=== PATIENT | female | born 1960 | race Two or more races ===

== ENCOUNTER 2016-10-08 05:22 | Emergency (ER) | payer BC ==
[~2016-10-08] VITALS: Ht 157.5 cm; Wt 77.2 kg
[2016-10-08 05:39] LABS: HEMATOCRIT 39.5 % (36.0-46.0); MCH 29.2 PG (29.0-34.0); MCHC 33.4 G/DL (30.0-36.0); MCV 87.4 FL (83-99); MEAN PLAT.VOLUME 9.2 uM^3 (9.5-12.4); PLATELET COUNT 267 K/uL (156-360); RBC DIS.WIDTH-CV 12.4 % (11.8-14.6); RBC DIS.WIDTH-SD 38.8 % (39-53); RED BLOOD COUNT 4.52 M/uL (3.80-5.20); WHITE BLOOD COUNT 6.3 K/uL (4.1-10.2)
[2016-10-08 05:48] LABS: CHLORIDE 110 mEq/L (99-109); POTASSIUM 3.6 mEq/L (3.7-5.4); SODIUM 142 mEq/L (136-147)
[2016-10-08 05:51] LABS: GLUCOSE 145 mg/dL (70-99)
[2016-10-08 05:52] LABS: ANION GAP 9 MEQ/L (2-14)
[2016-10-08 05:53] LABS: TOTAL BILIRUBIN 0.3 mg/dL (0.0-1.0)
[2016-10-08 05:54] LABS: ALKALINE PHOSPHATASE 72 IU/L (3-129); GFR ESTIMATE (CALCULATED) > 59 mL/min/
[2016-10-08 05:55] LABS: UREA NITROGEN (BUN) 21 mg/dL (9-23)
[2016-10-08 05:58] LABS: LIPASE 52 U/L (1.0-51.0)
[2016-10-08 06:04] LABS: QUANTITATIVE HCG < 4.0 MIU/ML
[2016-10-08 06:57] LABS: TROP-I INTERPRETATION NEGATIVE; TROPONIN-I < 0.01 ng/mL (0.0-0.30)
[2016-10-08 07:19] LABS: ADD MIUA? NO; BILIRUBIN NEGATIVE; BLOOD NEGATIVE; COLOR YELLOW ((YELLOW)); GLUCOSE (STRIP) NEGATIVE; KETONES NEGATIVE; LEUKOCYTES NEGATIVE; NITRITE NEGATIVE; PROTEIN (STRIP) NEGATIVE; SPECIFIC GRAVITY 1.015 (1.000-1.030); UCUL ADDED? NO; UROBILINOGEN 0.2 MG/DL (0.2-1.0)
[2016-10-08 08:10] VITALS: BP 100/67
== END 2016-10-08 08:18 | disposition home or self-care (01) ==
LOC: EME 05:22
PROVIDERS: Physician Assistant Medical
DX: R10.13 Epigastric pain (principal); E66.9 Obesity, unspecified
CPT/HCPCS: 80053; 81003; 83690; 84484; 84702; 85027; 93005; 99281; 99284; J2270; J2405; J7030